=== PATIENT | male | born 1940 | race African-American/Black ===

== ENCOUNTER 2022-07-12 12:29 | Emergency (ER) | payer OTHER ==
[~2022-07-12] VITALS: Ht 175.3 cm; Wt 73.0 kg
[2022-07-12] MEDS ORDERED: SODIUM CHLORIDE 0.9% 1,000 ML IV ONE (13:00)
[2022-07-12 13:37] LABS: HEMATOCRIT. 37.9 % (42.0-52.0); HEMOGLOBIN. 12.7 g/dL (14.0-18.0); MEAN CORPUSCULAR HEMOGLOBIN 30.7 pg (28.0-32.0); MEAN CORPUSCULAR VOLUME 91.5 fL (80.0-94.0); MEAN PLATELET VOLUME 8.1 fl (7.4-10.4); PLATELET 208 x1000/uL (130-400); RED BLOOD CELL COUNT 4.14 mill/uL (4.7-6.1); RED CELL DISTRIBUTION WIDTH 12.9 % (11.6-14.6)
[2022-07-12 13:46] LABS: CHLORIDE 109 mEq/L (98-107)
[2022-07-12 15:26] LABS: PLATELET ESTIMATE NORMAL
[2022-07-12 16:21] LABS: CLARITY URINE CLEAR (CLEAR); COLOR URINE YELLOW (YELLOW); KETONES URINE NEGATIVE (NEGATIVE); LEUKOCYTE ESTERASE URINE NEGATIVE (NEGATIVE); NITRITE URINE NEGATIVE (NEGATIVE); OCCULT BLOOD URINE NEGATIVE (NEGATIVE); PH URINE 5.5 (4.5-8.0); PROTEIN URINE NEGATIVE (NEGATIVE); SPECIFIC GRAVITY URINE 1.012 (1.005-1.030); UROBILINOGEN URINE 0.2 E.U./dL (0.2-1.0)
[2022-07-12] MEDS ORDERED: DEXAMETHASONE 4MG TABLET PO ONE (17:30)
[2022-07-12] MEDS ORDERED: CEFTRIAXONE 1 G PREMIX 50 ML IV ONE (17:45)
[2022-07-12 19:14] VITALS: BP 135/69
== END 2022-07-12 19:18 | disposition left against medical advice (07) ==
LOC: ER 12:29
DX: R55 Syncope and collapse (principal); D72.829 Elevated white blood cell count, unspecified; N17.9 Acute kidney failure, unspecified; I10 Essential (primary) hypertension; Z85.46 Personal history of malignant neoplasm of prostate
CPT/HCPCS: 36415; 70450; 71045; 80053; 81003; 83605; 84145; 84484; 85025; 87040; 87086; 93005; 96361; 96365; 99285; J0696; J7030; J8540